=== PATIENT | male | born 1955 | race Caucasian/White ===

== ENCOUNTER 2016-04-16 17:21 | Outpatient (CLI) | payer OTHER ==
--- NOTE | 2016-04-16 17:53 | DIAGNOSTIC IMAGING REPORT ---
PROCEDURE: XR LUMBAR SPINE 2 OR 3 VIEWS INDICATION: PAIN TECHNIQUE: Three views. COMPARISON: None. FINDINGS: Spondylosis at L3-4 resulting and dextro scoliosis. No evidence of an acute process or fracture. IMPRESSION: 1. L3-4 spondylosis and dextro scoliosis.
--- NOTE | 2016-04-16 17:55 | DIAGNOSTIC IMAGING REPORT ---
PROCEDURE: XR CERVICAL SPINE 4 OR 5 VIEW INDICATION: PAIN TECHNIQUE: Five views. COMPARISON: None. FINDINGS: Osseous structures and disc spaces are normal. No evidence of an acute process or fracture. Neural foramina are normal. IMPRESSION: 1. Negative cervical spine.
== END 2016-04-16 23:00 ==
LOC: XR SRH 17:21
DX: M47.816 Spondylosis without myelopathy or radiculopathy, lumbar region (principal); M41.86 Other forms of scoliosis, lumbar region; M54.2 Cervicalgia